=== PATIENT | male | born 1970 | race African-American/Black ===

== ENCOUNTER 2024-11-01 11:52 | Inpatient (IN) | payer SELFPAY ==
[2024-11-01 12:33] LABS: Absolute Lymphocytes (CBC) 2.5 K/uL (0.7-4.9); Hematocrit 40.3 % (39.6-49.0); Hemoglobin 12.8 g/dL (13.6-17.9); MCH 23.2 pg (27.0-35.0); MCHC 31.8 g/dL (32.0-36.0); MCV 73.1 fL (80-100); MPV 9.9 fL (7.6-11.3); Nucleated RBC Absolute Count 0.0 (0-0); Nucleated Red Blood Cells % 0.0 % (0-0); RBC Red Blood Cell Count 5.52 M/uL (4.33-5.43); White Blood Count 7.60 thou/uL (4.3-10.9)
--- NOTE | 2024-11-01 12:58 | RAD REPORT ---
EXAM: Chest Single View HISTORY: 54 years Male Weakness COMPARISON: No prior exams FINDINGS: LUNGS/PLEURA: The lungs are clear. No pleural effusions or pneumothorax. No pulmonary edema. CARDIAC/MEDIASTINUM: The cardiac silhouette is within normal limits. UPPER ABDOMEN: No significant abnormality. BONES: No acute abnormality. LINES/TUBES/OTHER: N/A IMPRESSION: No evidence of acute cardiopulmonary disease.
[2024-11-01 13:12] LABS: PT Prothrombin Time 11.6 SECONDS (10-13.0); Protime INR 1.03
[2024-11-01 13:24] LABS: ALT/SGPT 16 U/L (16-61); Albumin 3.4 g/dL (3.4-5.0); Albumin/Globulin Ratio 1.0 (1.1-1.8); Alkaline Phosphatase 161 U/L (45-117); Anion Gap 6.5 mEq/L (5.0-15.0); BUN Blood Urea Nitrogen 13 mg/dL (7-18); Globulin 3.5 g/dL (2.3-3.5); Glucose Level 160 mg/dL (74-106); Magnesium 1.7 mg/dL (1.6-2.4); Potassium 3.5 mEq/L (3.5-5.1); Troponin High Sensitivity 7.2 pg/mL (<58.9)
[2024-11-01 13:35] LABS: AST/SGOT < 10 U/L (15-37)
--- NOTE | 2024-11-01 14:16 | RAD REPORT ---
EXAMINATION: Head Brain Wo Cont CLINICAL INDICATION: Male, 54 years old.WEAKNESS TECHNIQUE: Axial CT images from the skull base to the vertex without intravenous contrast. Coronal an d sagittal reformatted images were created from the data set. One or more of the following dose reduction techniques were used: Automated exposure control, adjustment of the mA and/or kV according to patient size, and/or iterative reconstruction. Unless otherwise specified, incidental findings do not require dedicated imaging follow-up. [id number]. COMPARISON: No prior exams FINDINGS: INTRACRANIAL: No acute intracranial hemorrhage. No acute large vascular territory infarct. No hydroce phalus. No mass effect or midline shift. Moderate chronic small vessel ischemic changes. VASCULATURE: No visualized abnormalities in the arteries or dural venous sinuses. SCALP/SKULL: No calvarial fracture identified. No acute soft tissue abnormality. SINUSES: Mucous retention cyst in the left maxillary sinus. No significant mastoid fluid. IMPRESSION: No acute intracranial abnormality. Cerebral atrophy with chronic small vessel ischemic changes.
--- NOTE | 2024-11-01 14:17 | RAD REPORT ---
EXAMINATION: Neck Angio CLINICAL INDICATION: Male, 54 years old. Weakness TECHNIQUE: Axial CT images were obtained from the aortic arch to the skull base after intravenous con trast utilizing angiographic protocol with 3D post-processing (maximum intensity projection images, volume rendered images and/or shaded surface rendered images). One or more of the following dose redu ction techniques were used: Automated exposure control, adjustment of the mA and/or kV according to patient size, and/or iterative reconstruction. Unless otherwise specified, incidental findings do not require dedicated imaging follow-up. [id number]. NASCET criteria used. Mild 0-49% stenosis Moderate 50-69% stenosis Severe 70-99% stenosis COMPARISON: No prior exam. FINDINGS: AORTA: Normal RIGHT: - CCA: No flow limiting stenosis (>= 50%). No dissection. - ICA: No flow limiting stenosis (>= 50%). No dissection. - ECA: No flow limiting stenosis (>= 50%). No dissection. LEFT: - CCA: No flow limiting stenosis (>= 50%). No dissection. - ICA: No flow limiting stenosis (>= 50%). No dissection. - ECA: No flow limiting stenosis (>= 50%). No dissection. VERTEBRAL: Patent SOFT TISSUE: No significant neck soft tissue abnormalities. The visualized lung apices are clear. 3D images confirm these findings. IMPRESSION: No arterial dissection or stenosis identified within the neck.
--- NOTE | 2024-11-01 14:19 | RAD REPORT ---
EXAMINATION: Head angio CLINICAL INDICATION: Male, 54 years old. WEAKNESS TECHNIQUE: Axial CT images were obtained through the head after intravenous contrast utilizing angiog raphic protocol with 3D post-processing (maximum intensity projection images, volume rendered images and/or shaded surface rendered images). One or more of the following dose reduction technique s were used: Automated exposure control, adjustment of the mA and/or kV according to patient size, and/or iterative reconstruction. Unless otherwise specified, incidental findings do not require dedic ated imaging follow-up. COMPARISON: No prior exam. FINDINGS: RIGHT: ICA: No aneurysm, stenosis, or dissection. BRITTNI: No aneurysm, stenosis, or dissection. MCA: No aneurysm, stenosis, or dissection. CIGAR PATCHER: No aneurysm, stenosis, or dissection. LEFT: ICA: No aneurysm, stenosis, or dissection. BRITTNI: No aneurysm, stenosis, or dissection. MCA: No aneurysm, stenosis, or dissection. CIGAR PATCHER: No aneurysm, stenosis, or dissection. Vertebrobasilar: The vertebral arteries are patent. The basilar artery is normal in appearance. 3D images confirm these findings. IMPRESSION: No occlusion, aneurysm, or hemodynamically significant stenosis identified.
--- NOTE | 2024-11-01 14:40 | ER ---
Nurse's Notes [facility] Name: Blas Molina Age: 54 yrs Sex: Male : 1970 Arrival Date: 11/01/2024 Time: 11:52 Bed 13 Private MD: Diagnosis: Weakness Presentation: 11/01 12:10 Chief complaint: Patient states: right sided weakness X 2 days , noticed his right leg iw was lagging and now he feels like his right hand is weak. Coronavirus screen: At this time, the client does not indicate any symptoms associated with coronavirus-19. Ebola Screen: No symptoms or risks identified at this time. Initial Sepsis Screen: Does the patient meet any 2 criteria? No. Patient's initial sepsis screen is negative. Does the patient have a suspected source of infection? No. Patient's initial sepsis screen is negative. Risk Assessment: Do you want to hurt yourself or someone else? Patient reports no desire to harm self or others. 12:10 Method Of Arrival: Wheelchair iw 12:10 Acuity: SALVADOR 3 iw 12:13 No acute neurological deficit is noted. Pre-hospital glucose is not applicable to this iw patient. 12:14 Onset of symptoms was October 30, 2024. iw Stroke Activation: Physician: ED Attending; Name: Dr. Alvarez; Notified At: 12:11; Arrived At: 12:11 Physician: Mid-Level Provider; Name: DEB Tejada; Notified At: 12:00; Arrived At: 12:00 Physician: [not used]; Name: ; Notified At: ; Arrived At: Physician: [not used]; Name: ; Notified At: ; Arrived At: Physician: [not used]; Name: ; Notified At: ; Arrived At: Historical: - Allergies: 12:14 No Known Allergies; iw - Home Meds: 12:14 Soliqua 100/33 100 unit-33 mcg/mL subcutaneous Insulin Pen 22 units every morning iw [Active]; Humalog U-100 Insulin 100 unit/mL Sub-Q solution before meals [Active]; Eliquis 5 mg oral tablet 2 times per day [Active]; olmesartan 20 mg oral tablet daily [Active]; carvedilol 12.5 mg oral tablet 2 times per day [Active]; - PMHx: 12:12 Cerebrovascular accident; Diabetes mellitus; Hypertensive disorder; iw - Immunization history:: Adult Immunizations not up to date. - Infectious Disease History:: Denies. - Social history:: Smoking status: Patient reports the use of cigarette tobacco products, smokes one-half pack cigarettes per day. Screenin:26 [facility] ED Fall Risk Assessment (Adult) History of falling in the last 3 months, cm10 including since admission No falls in past 3 months (0 pts) Confusion or Disorientation No (0 pts) Intoxicated or Sedated No (0 pts) Impaired Gait No (0 pts) Mobility Assist Device Used No (0 pt) Altered Elimination No (0 pt) Score/Fall Risk Level 0 - 2 = Low Risk Oriented to surroundings, Maintained a safe environment, Hourly rounding (assess needs \T\ fall precautionary measures) done. Abuse screen: Denies threats or abuse. Denies injuries from another. Nutritional screening: No deficits noted. 17:21 Tuberculosis screening: No symptoms or risk factors identified. cm10 Assessment: 12:48 General: Appears in no apparent distress. comfortable, Behavior is calm, cooperative. cm10 Pain: Denies pain. Neuro: No deficits noted. Level of Consciousness is awake, alert, obeys commands, Oriented to person, place, time, situation, Appropriate for age Reports weakness. Respiratory: No deficits noted. Airway is patent Respiratory effort is even, unlabored, Respiratory pattern is regular, symmetrical. 12:49 Cardiovascular: Patient's skin is warm and dry. cm10 14:24 Reassessment: Patient appears in no apparent distress at this time. Patient and/or cm10 family updated on plan of care and expected duration. Pain level reassessed. Patient is alert, oriented x 3, equal unlabored respirations, skin warm/dry/pink. 14:51 Reassessment: Patient appears in no apparent distress at this time. No changes from cm10 previously documented assessment. Patient and/or family updated on plan of care and expected duration. Pain level reassessed. Patient is alert, oriented x 3, equal unlabored respirations, skin warm/dry/pink. Vital Signs: 12:13 BP 178 / 109; Pulse 83; Resp 16; Temp 98.1; Pulse Ox 100% on R/A; Weight 72.57 kg; iw Height 5 ft. 10 in. ; 12:45 BP 165 / 103; Pulse 79; Resp 16; Pulse Ox 100% on R/A; cm10 13:00 BP 167 / 100; Pulse 78; Resp 16; Pulse Ox 98% on R/A; cm10 13:00 BP 173 / 102; Pulse 74; Resp 14; Pulse Ox 98% on R/A; cm10 13:15 BP 167 / 98; Pulse 77; Resp 18; Pulse Ox 100% on R/A; cm10 13:30 BP 166 / 104; Pulse 71; Resp 16; Pulse Ox 100% ; cm10 13:45 BP 161 / 104; Pulse 68; Resp 16; Pulse Ox 100% on R/A; cm10 16:25 BP 169 / 105; Pulse 70; Resp 18; Pulse Ox 100% ; cm10 17:00 BP 177 / 104; Pulse 72; Resp 16; Pulse Ox 100% on R/A; cm10 12:13 Body Mass Index 22.96 (72.57 kg, 177.8 cm) iw NIH Stroke Scale Scores: 12:42 NIHSS Score: 2 dr5 ED Course: 11:53 Patient arrived in ED. eb 11:53 Terrell Mondragon FNP-C is PHCP. dr5 11:53 Adalid Alvarez MD is Attending Physician. dr5 12:02 Olga Aquino, MITESH is Primary Nurse. cm10 12:12 Triage completed. iw 12:14 Arm band placed on. iw 12:26 Patient has correct armband on for positive identification. Bed in low position. Side cm10 rails up X2. Client placed on continuous cardiac and pulse oximetry monitoring. NIBP monitoring applied. equipment scheduler on. 12:26 PT-INR Sent. cm10 12:26 Troponin High Sensitivity Sent. cm10 12:26 Phosphorus Sent. cm10 12:26 CMP Sent. cm10 12:26 CBC with Diff Sent. cm10 12:27 Initial lab(s) drawn, by me, sent to lab. Inserted saline lock: 22 gauge in right cm10 forearm, using aseptic technique. Blood collected. Flushed with 10 mL NS. 12:27 Missed attempt(s): 20 gauge in right antecubital area. Bleeding controlled, band aid cm10 applied, catheter tip intact. 12:36 Chest Single View XRAY In Process Unspecified. EDMS 12:59 Lab(s) recollected, by me, sent to lab. em1 14:12 CT Head Brain wo Cont In Process Unspecified. EDMS 14:12 CT Head Angio In Process Unspecified. EDMS 14:12 CT Neck Angio In Process Unspecified. EDMS 14:39 Stan Pina MD is Hospitalizing Provider. dr5 17:21 Provided Education on: Need for admit. cm10 17:21 No provider procedures requiring assistance completed. Patient admitted, IV remains in cm10 place. Administered Medications: 16:24 Drug: hydrALAZINE IVP 5 mg IVP once Route: IVP; Site: right forearm; cm10 17:22 Follow up: Response: No adverse reaction cm10 Medication: 12:48 VIS not applicable for this client. cm10 Outcome: 14:39 Decision to Hospitalize by Provider. dr5 17:20 Admitted to Med/surg accompanied by tech, via wheelchair, room 219, cm10 17:20 Condition: good 17:20 Instructed on the need for admit, 17:22 Patient left the ED. cm10 NIH Stroke Scale - NIH Stroke Score Date: 11/01/2024 Time: 12:42 Total Score = 2 10. Dysarthria (speech clarity - read or repeat words) - 0(Normal) 11. Extinction and Inattention (visual/tactile/auditory/spatial/personal) - 0(No abnormality) 1a. Level of Consciousness (LOC) - 0(Alert) 1b. Level of Consciousness (LOC) (Month \T\ Age) - 0(Both) 1c. LOC Commands (Open \T\ Closes Eyes/Medical Center Manager) - 0(Both) 2. Best Gaze (Lateral Gaze Paresis) - 0(Normal) 3. Visual Field Loss - 0(No visual loss) 4. Facial Palsy - 0(Normal) 5a. Left Arm: Motor (10-second hold) - 0(No drift) 5b. Right Arm: Motor (10-second hold) - 0(No drift) 6a. Left Leg: Motor (5-second hold - always test supine) - 0(No drift) 6b. Right Leg: Motor (5-second hold - always test supine) - 2(Drift, some effort against gravity) 7. Limb Ataxia (finger/nose \T\ heel/hodges - test with eyes open) - 0(Absent) 8. Sensory Loss (pinprick arms/legs/face) - 0(Normal) 9. Best Language: Aphasia (description/naming/reading) - 0(No aphasia) Initials: dr5 Signatures: Dispatcher [employer] Samantha Riley, Giancarlo Howell RN em1 Gladys Sanchez Clarissa, RN RN cm10 Terrell Mondragon, ED TEACHER-C ED TEACHER-Cdr5
--- NOTE | 2024-11-01 14:40 | EDPHYS ---
Physician Documentation [facility] Name: Blas Molina Age: 54 yrs Sex: Male : 1970 Arrival Date: 11/01/2024 Time: 11:52 Bed 13 Private MD: ED Physician Adalid Alvarez HPI: 11/01 12:08 This 54 yrs old Black Male presents to ER via Ambulatory with complaints of Weakness. dr5 12:37 This 54 yrs old Black Male presents to ER via Wheelchair with complaints of Weakness. dr5 12:37 The patient presents to the emergency department with weakness of the right lower dr5 extremity, that is mild. Onset: The symptoms/episode began/occurred 2 day(s) ago. Context: occurred at home. Patient is a 54-year-old male with history of CVA back in February 2024 with left-sided deficits and slow speech patterns, hypertension, and diabetes coming into ER for right leg weakness that started 2 days ago. Patient reports that he noticed he was having difficulty ambulating on right leg and would give out on him when trying to ambulate. Patient currently takes Eliquis 5 mg twice daily and 81 mg aspirin.. Historical: - Allergies: 12:14 No Known Allergies; iw - Home Meds: 12:14 Soliqua 100/33 100 unit-33 mcg/mL subcutaneous Insulin Pen 22 units every morning iw [Active]; Humalog U-100 Insulin 100 unit/mL Sub-Q solution before meals [Active]; Eliquis 5 mg oral tablet 2 times per day [Active]; olmesartan 20 mg oral tablet daily [Active]; carvedilol 12.5 mg oral tablet 2 times per day [Active]; - PMHx: 12:12 Cerebrovascular accident; Diabetes mellitus; Hypertensive disorder; iw - Immunization history:: Adult Immunizations not up to date. - Infectious Disease History:: Denies. - Social history:: Smoking status: Patient reports the use of cigarette tobacco products, smokes one-half pack cigarettes per day. ROS: 12:41 Constitutional: as per hpi dr5 Exam: 12:42 Constitutional: This is a well developed, well nourished patient who is awake, alert, dr5 and in no acute distress. Head/Face: Normocephalic, atraumatic. Eyes: Pupils equal round and reactive to light, extra-ocular motions intact. Lids and lashes normal. Conjunctiva and sclera are non-icteric and not injected. Cornea within normal limits. Periorbital areas with no swelling, redness, or edema. ENT: Nares patent. No nasal discharge, no septal abnormalities noted. Tympanic membranes are normal and external auditory canals are clear. Oropharynx with no redness, swelling, or masses, exudates, or evidence of obstruction, uvula midline. Mucous membranes moist. Neck: Trachea midline, no thyromegaly or masses palpated, and no cervical lymphadenopathy. Supple, full range of motion without nuchal rigidity, or vertebral point tenderness. No Meningismus. Chest/axilla: Normal chest wall appearance and motion. Nontender with no deformity. No lesions are appreciated. Cardiovascular: Regular rate and rhythm with a normal S1 and S2. Normal PMI, no JVD. No pulse deficits. Respiratory: Lungs have equal breath sounds bilaterally, clear to auscultation. No rales, rhonchi or wheezes noted. No increased work of breathing, no retractions or nasal flaring. Abdomen/GI: Soft, non-tender, non-distended Back: No spinal tenderness. No costovertebral tenderness. Full range of motion. Skin: Warm, dry with normal turgor. Normal color with no rashes, no lesions, and no evidence of cellulitis. MS/ Extremity: Pulses equal, no cyanosis. Neurovascular intact. Full, normal range of motion. Weakness noted to right lower leg. Pt is able to lift up leg without assistance and push up against resistance. Neuro: Awake and alert, GCS 15, oriented to person, place, time, and situation. Cranial nerves II-XII grossly intact. Motor strength 5/5 in all extremities. Sensory grossly intact. 15:08 Radiologist reports: Negative results for CVA on CT scan for acute occlusion dr5 Vital Signs: 12:13 BP 178 / 109; Pulse 83; Resp 16; Temp 98.1; Pulse Ox 100% on R/A; Weight 72.57 kg; iw Height 5 ft. 10 in. ; 12:45 BP 165 / 103; Pulse 79; Resp 16; Pulse Ox 100% on R/A; cm10 13:00 BP 167 / 100; Pulse 78; Resp 16; Pulse Ox 98% on R/A; cm10 13:00 BP 173 / 102; Pulse 74; Resp 14; Pulse Ox 98% on R/A; cm10 13:15 BP 167 / 98; Pulse 77; Resp 18; Pulse Ox 100% on R/A; cm10 13:30 BP 166 / 104; Pulse 71; Resp 16; Pulse Ox 100% ; cm10 13:45 BP 161 / 104; Pulse 68; Resp 16; Pulse Ox 100% on R/A; cm10 16:25 BP 169 / 105; Pulse 70; Resp 18; Pulse Ox 100% ; cm10 17:00 BP 177 / 104; Pulse 72; Resp 16; Pulse Ox 100% on R/A; cm10 12:13 Body Mass Index 22.96 (72.57 kg, 177.8 cm) iw NIH Stroke Scale Scores: 12:42 NIHSS Score: 2 dr5 MDM: 11:53 Medical Screening Exam initiated dr5 15:07 Differential diagnosis: CVA, TIA, Dementia, Parkinson disease, metabolic disorder, drug dr5 effects. Data reviewed: vital signs, nurses notes, lab test result(s), CBC, white blood cell count, hemoglobin, hematocrit, platelets, electrolytes, sodium, potassium, chloride, serum bicarbonate, BUN, creatinine, serum glucose, Mag, Phosphorus, EKG, radiologic studies, CT scan, I have discussed the patient's presentation/case with the attending Emergency Department Physician;. Consideration of Admission/Observation Patient was admitted/placed on observation. Management of patient was discussed with the following: Hospitalist: Dr. Pina / Lianet Mcdowell. I considered the following discharge prescriptions or medication management in the emergency department. Historians other than the Patient: Spouse/Significant Other: . Care significantly affected by the following chronic conditions: Diabetes, Hypertension, CVA. Care significantly affected by the following Social Determinants of Health: Poor access to healthcare and/or lack of insurance, Poor access to transportation, Problems related to employment. Counseling: I had a detailed discussion with the patient and/or guardian regarding the historical points, exam findings, and any diagnostic results supporting the discharge/admit diagnosis, the presence of at least one elevated blood pressure reading (>120/80) during this emergency department visit, lab results, radiology results, the need for further work-up and treatment in the hospital. 11/01 12: Order name: CBC with Diff; Complete Time: 12:35 dr5 11/01 12: Order name: CMP; Complete Time: 13:38 dr5 11/01 12:06 Order name: Magnesium; Complete Time: 13:38 dr5 11/01 12:06 Order name: Phosphorus; Complete Time: 13:38 dr5 11/01 12:06 Order name: Troponin High Sensitivity; Complete Time: 13:38 dr5 11/01 12:06 Order name: PT-INR; Complete Time: 13:14 dr5 11/01 15:35 Order name: Basic Metabolic Panel EDMS 11/01 15:35 Order name: Basic Metabolic Panel EDMS 11/01 15:35 Order name: Basic Metabolic Panel EDMS 11/01 15:35 Order name: Basic Metabolic Panel EDMS 11/01 15:35 Order name: Basic Metabolic Panel EDMS 11/01 15:35 Order name: Basic Metabolic Panel EDMS 11/01 15:35 Order name: Lipid Profile EDMS 11/01 15:35 Order name: Lipid Profile EDMS 11/01 15:35 Order name: Magnesium EDMS 11/01 15:35 Order name: Magnesium EDMS 11/01 15:35 Order name: Magnesium EDMS 11/01 15:35 Order name: Magnesium EDMS 11/01 15:35 Order name: Magnesium EDMS 11/01 15:35 Order name: Magnesium EDMS 11/01 15:35 Order name: Phosphorus EDMS 11/01 15:35 Order name: Phosphorus EDMS 11/01 15:35 Order name: Phosphorus EDMS 11/01 15:35 Order name: Phosphorus EDMS 11/01 15:35 Order name: Phosphorus EDMS 11/01 15:35 Order name: Phosphorus EDMS 11/01 15:35 Order name: T4,Total EDMS 11/01 15:35 Order name: T4,Total EDMS 11/01 15:36 Order name: CBC with Automated Diff EDMS 11/01 15:36 Order name: CBC with Automated Diff EDMS 11/01 15:36 Order name: CBC with Automated Diff EDMS 11/01 15:36 Order name: CBC with Automated Diff EDMS 11/01 15:36 Order name: CBC with Automated Diff EDMS 11/01 15:36 Order name: CBC with Automated Diff EDMS 11/01 15:36 Order name: Thyroid Stimulating Hormone EDMS 11/01 15:36 Order name: Thyroid Stimulating Hormone EDMS 11/01 15:36 Order name: Troponin High Sensitivity EDMS 11/01 15:36 Order name: Troponin High Sensitivity EDMS 11/01 15:36 Order name: Troponin High Sensitivity [facility] 11/01 12:06 Order name: CT Head Brain wo Cont; Complete Time: 14:16 [facility] 11/01 12:06 Order name: CT Head Angio; Complete Time: 14:29 [facility] 11/01 12:06 Order name: CT Neck Angio; Complete Time: 14:29 [facility] 11/01 12:06 Order name: Chest Single View XRAY; Complete Time: 12:59 [facility] 11/01 15:36 Order name: Echo with Doppler [facility] 11/01 15:36 Order name: Stroke Protocol [facility] 11/01 15:36 Order name: Physical Therapy Consult [facility] 11/01 15:38 Order name: Speech Therapy Consult [facility] 11/01 12:06 Order name: Cardiac monitoring; Complete Time: 12:26 [facility] 11/01 12:06 Order name: EKG - Nurse/Tech; Complete Time: 12:26 [facility] 11/01 12:06 Order name: IV Saline Lock; Complete Time: 12:26 [facility] 11/01 12:06 Order name: Labs collected and sent; Complete Time: 12:26 [facility] 11/01 12:06 Order name: O2 Per Protocol; Complete Time: 12:26 [facility] 11/01 12:06 Order name: O2 Sat Monitoring; Complete Time: 12:26 [facility] 11/01 12:49 Order name: Labs - recollect needed: recollect light green and blue top; Complete Time: eb 12:59 EC:17 Rate is 76 beats/min. Rhythm is regular. QRS Linneus is Normal. SC interval is normal at dr5 154 msec. QRS interval is normal at 84 msec. QT interval is normal at 412 msec. Clinical impression: Normal ECG and No evidence of ischemia. Administered Medications: 16:24 Drug: hydrALAZINE IVP 5 mg IVP once Route: IVP; Site: right forearm; cm10 17:22 Follow up: Response: No adverse reaction cm10 Disposition: 17:24 Co-signature as Attending Physician, Adalid Alvarez MD I reviewed the patient's care rn provided by the Advanced Practice Provider and agree with the diagnosis and treatment plan. Disposition Summary: 11/01/24 14:39 Hospitalization Ordered Notes: Hospitalization Status: Inpatient Admission dr5 Provider: Stan Pina dr5 Location: Telemetry/MedSurg (Inpatient) dr5 Condition: Stable dr5 Problem: new dr5 Symptoms: are unchanged dr5 Bed/Room Type: Standard dr5 Room Assignment: 219(11/01/24 15:45) eb Diagnosis - Weakness dr5 Forms: - Medication Reconciliation Form dr5 - SBAR form dr5 - Leadership Thank You Letter dr5 Critical care time excluding procedures: 15:08 Critical care time: Bedside Care: 20 minutes, Consultation: 10 minutes, Family dr5 Intervention: 5 minutes. Total time: 35 minutes NIH Stroke Scale - NIH Stroke Score Date: 11/01/2024 Time: 12:42 Total Score = 2 10. Dysarthria (speech clarity - read or repeat words) - 0(Normal) 11. Extinction and Inattention (visual/tactile/auditory/spatial/personal) - 0(No abnormality) 1a. Level of Consciousness (LOC) - 0(Alert) 1b. Level of Consciousness (LOC) (Month \T\ Age) - 0(Both) 1c. LOC Commands (Open \T\ Closes Eyes/Extension Edger) - 0(Both) 2. Best Gaze (Lateral Gaze Paresis) - 0(Normal) 3. Visual Field Loss - 0(No visual loss) 4. Facial Palsy - 0(Normal) 5a. Left Arm: Motor (10-second hold) - 0(No drift) 5b. Right Arm: Motor (10-second hold) - 0(No drift) 6a. Left Leg: Motor (5-second hold - always test supine) - 0(No drift) 6b. Right Leg: Motor (5-second hold - always test supine) - 2(Drift, some effort against gravity) 7. Limb Ataxia (finger/nose \T\ heel/hodges - test with eyes open) - 0(Absent) 8. Sensory Loss (pinprick arms/legs/face) - 0(Normal) 9. Best Language: Aphasia (description/naming/reading) - 0(No aphasia) Initials: dr5 Signatures: Dispatcher [employer] Samantha Riley RN RN iw Nieto, Roman, MD MD rn Botello, Elizabeth eb Martinez, Clarissa, RN RN cm10 Terrell Mondragon, POTATO PANCAKE FRIER-C POTATO PANCAKE FRIER-Cdr5 Corrections: (The following items were deleted from the chart) 12:07 12:07 Chest Single View+RAD.RAD.[email or web address] ordered. EDMS EDMS 15:45 14:39 dr5 eb 16:50 15:37 Lumbar Spine 3 Views ordered. EDMS EDMS 16:50 15:37 Thoracic Spine Ap/Lat ordered. EDMS EDMS
[2024-11-01] MEDS ORDERED: ACETAMINOPHEN 500 MG TAB PO PRN (15:21)
--- NOTE | 2024-11-01 15:45 | P.HP ---
Certification for Inpatient Patient admitted to: Inpatient With expected LOS: >2 Midnights Practitioner: I am a practitioner with admitting privileges, knowledge of patient current condition, hospital course, and medical plan of care. 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 He reports having a CVA in 2023 and was treated in [place]. On evaluation, he displayed good conversation, good thought process, right leg drift, able to position in bed independently, elevated blood pressure. Laboratory evaluation significant for H&H 12/40, serum glucose 160, troponin 7.2. CT head reports "No acute intracranial abnormality. Cerebral atrophy with chronic small vessel ischemic changes" CTA neck reports "No arterial dissection or stenosis identified within the neck" CTA head reports "No occlusion, aneurysm, or hemodynamically significant stenosis identified" Chest xray reports "IMPRESSION: No evidence of acute cardiopulmonary disease." Blas will be admitted to hospitalist service for further evaluation and treatment. Dr. Flores consulted. Allergies No Known Allergies Allergy (Unverified 11/01/24 16:40) - Past Medical/Surgical History -: CVA 2023 -: HTN -: DM-IDDM - Social History Smoking Status: Current some day smoker Alcohol use: No CD- Drugs: No Review of Systems Other: Per HPI Physical Examination - Studies Laboratory Data (last 24 hrs) 11/01/24 11/01/24 11/01/24 12:56 12:56 12:23 WBC 7.60 Hgb 12.8 L Hct 40.3 Plt Count 192 PT 11.6 INR 1.03 Sodium 140 Potassium 3.5 BUN 13 Creatinine 1.07 Glucose 160 H Phosphorus 2.8 Magnesium 1.7 Total Bilirubin 0.3 AST < 10 L ALT 16 Alkaline Phosphatase 161 H Assessment and Plan - Plan Assessment and Plan CVA r/o Hx CVA 2023 - Consulted Neurology - recommendations appreciated - NIHSS = 2 - Allow permissive hypertension for tonight - q4hr neurochecks - Ordered MRI brain on Sunday - Ordered TTE on Sunday - PT/OT/BEARING INSPECTOR evaluation requested - Ordered risk profile: Hgb A1c, lipid panel, TSH - Started aspirin, folic acid, atorvastatin - Patient reports being on Eliquis DM-IDDM - Accu-Chek with sliding scale insulin Hypertension -Continue home medications as appropriate, titrate - Allow permissive hypertension tonight, SBP 180 DVT PPx continue Eliquis Full code LOS to 3 days Discharge Plan: Home Plan to discharge in: 72 Hours - Advance Directives Does patient have a Living Will: No Does patient have a Durable POA for Healthcare: No Time Spent Managing Pts Care (In Minutes): 60
[2024-11-01] MEDS ORDERED: HYDRALAZINE HCL 20 MG/ML VIAL ONE (16:20)
[2024-11-01] MEDS: NA CHLORIDE 0.9% 1,000 ML IV SCH (17:51)
[2024-11-01 18:13] VITALS: BMI 22.9
[2024-11-01 18:16] VITALS: O2SAT 100
[2024-11-01] MEDS ORDERED: APIXABAN 5 MG TABLET PO SCH (21:00)
[2024-11-01] MEDS: ATORVASTATIN 20 MG TAB PO SCH (21:44)
[2024-11-01] MEDS: APIXABAN 5 MG TABLET PO SCH (21:45)
[2024-11-01] MEDS: INSULIN REGULAR (HUMAN) 100 UNIT/ML SQ SCH (21:45)
[2024-11-02 06:41] LABS: Absolute Lymphocytes (CBC) 2.6 K/uL (0.7-4.9); Hematocrit 37.7 % (39.6-49.0); Hemoglobin 12.0 g/dL (13.6-17.9); MCH 23.3 pg (27.0-35.0); MCHC 31.9 g/dL (32.0-36.0); MCV 72.9 fL (80-100); MPV 10.5 fL (7.6-11.3); Nucleated RBC Absolute Count 0.0 (0-0); Nucleated Red Blood Cells % 0.1 % (0-0); RBC Red Blood Cell Count 5.17 M/uL (4.33-5.43); White Blood Count 6.50 thou/uL (4.3-10.9)
[2024-11-02 06:43] LABS: Anion Gap 8.5 mEq/L (5.0-15.0); BUN Blood Urea Nitrogen 16.0 mg/dL (7-18); Glucose Level 274.0 mg/dL (74-106); HDL Cholesterol 37.0 mg/dL (40-60); LDL Cholesterol, Calculated 44.0 mg/dL (<130); LDL Cholesterol,Calc NonReport 44.0; Magnesium 1.9 mg/dL (1.6-2.4); Potassium 3.5 mEq/L (3.5-5.1); T4,Total 8.8 ug/dL (4.5-12.1); Thyroid Stimulating Hormone 1.08 uIU/mL (0.358-3.740); Troponin High Sensitivity 8.6 pg/mL (<58.9)
[2024-11-02] MEDS ORDERED: ENOXAPARIN 40 MG/0.4 ML SQ SCH (09:00)
[2024-11-02] MEDS ORDERED: HOME MED 1 EA UNK (Aspirin [Aspirin] 81 MG Tablet) PO SCH (09:00)
[2024-11-02] MEDS ORDERED: HOME MED 1 EA UNK (Olmesartan Medoxomil [Olmesartan Medoxomil] 20 MG Tablet) PO SCH (09:00)
[2024-11-02] MEDS: INSULIN GLARGINE SQ SCH (09:00)
[2024-11-02] MEDS: LIXISENATIDE SQ SCH (09:00)
[2024-11-02] MEDS: FAMOTIDINE 20 MG TAB PO SCH (09:19)
[2024-11-02] MEDS: POTASSIUM CL SA 10 MEQ TAB PO ONE (09:19)
[2024-11-02] MEDS: ASPIRIN EC 81 MG TAB PO SCH (09:19)
--- NOTE | 2024-11-02 11:49 | P.PN ---
Date of Service: 11/02/24 Subjective: No acute events overnight Reports when ambulating he feels weak in the right lower extremity Denies any other new symptoms ROS: 10 point ROS as noted above, otherwise negative Physical exam GEN: Alert, oriented, NAD HEENT: Normal conjunctiva, sclera anicteric CV: Regular rate and rhythm, no edema Pulm: Nonlabored respirations on room air ABD: Soft, nontender, nondistended MSK: No joint tenderness Integumentary: No rashes Neuro: Normal speech, normal affect Vitals reviewed Assessment: CVA r/o Hx CVA 2023 - Consulted Neurology - recommendations appreciated - NIHSS = 2 - Allow permissive hypertension for tonight - q4hr neurochecks - Ordered MRI brain on Sunday - Ordered TTE on Sunday - PT/OT/CHANGE COORDINATOR evaluation requested - Ordered risk profile: Hgb A1c, lipid panel, TSH - Started aspirin, folic acid, atorvastatin - Patient reports being on Eliquis DM-IDDM - Accu-Chek with sliding scale insulin Hypertension -Continue home medications as appropriate, titrate - Allow permissive hypertension tonight, SBP 180 DVT PPx continue Eliquis Full code LOS to 3 days Time Spent Managing Pts Care (In Minutes): 35
[2024-11-02] MEDS: INSULIN GLARGINE 100 UNIT/ML SQ SCH (12:43)
[2024-11-03 05:53] LABS: Absolute Lymphocytes (CBC) 3.2 K/uL (0.7-4.9); Hematocrit 34.9 % (39.6-49.0); Hemoglobin 11.2 g/dL (13.6-17.9); MCH 23.2 pg (27.0-35.0); MCHC 32.0 g/dL (32.0-36.0); MCV 72.3 fL (80-100); MPV 10.3 fL (7.6-11.3); Nucleated RBC Absolute Count 0.0 (0-0); Nucleated Red Blood Cells % 0.1 % (0-0); RBC Red Blood Cell Count 4.82 M/uL (4.33-5.43); White Blood Count 6.90 thou/uL (4.3-10.9)
[2024-11-03 06:07] LABS: Anion Gap 8.8 mEq/L (5.0-15.0); BUN Blood Urea Nitrogen 14.0 mg/dL (7-18); Glucose Level 241.0 mg/dL (74-106); Magnesium 1.8 mg/dL (1.6-2.4); Potassium 3.8 mEq/L (3.5-5.1)
[2024-11-03] MEDS: MAGNESIUM SULFATE 1 gm IVPB 1 GM/100 ML BAG IV ONE (09:11)
[2024-11-03] MEDS: POTASSIUM CL SA 10 MEQ TAB PO ONE (09:12)
[2024-11-03] MEDS: ASPIRIN EC 81 MG TAB PO SCH (09:12)
[2024-11-03 16:34] VITALS: BP 174/99; TEMP 98.3
--- NOTE | 2024-11-03 18:11 | RAD REPORT ---
EXAMINATION: MRI BRAIN WITHOUT CONTRAST CLINICAL INDICATION: Male, 54 years old.[facility] N RLE weakness TECHNIQUE: Multiplanar multisequence MR images of the brain were obtained without intravenous contras t. Unless otherwise specified, incidental findings do not require dedicated imaging follow-up. COMPARISON: Head CT and CT angiogram 11/01/2024 FINDINGS: INTRACRANIAL: Midline structures are unremarkable. Diffusion-weighted images show 3 foci of diffusion restriction in the right postcentral gyrus subcort ical white matter, left centrum semiovale, and right aspect of the genu of the corpus callosum. There is mild diffuse parenchymal atrophy with moderateT2/FLAIR hyperintensities in the periventricul ar and deep white matter regions, likely representing chronic microvascular ischemic changes. There is no mass effect or midline shift. No abnormal extraaxial fluid collection. VASCULATURE: Normal signal voids in the larger intracranial arteries and dural venous sinuses. SINUSES: Mild scattered inflammatory mucosal thickening. Large left maxillary sinus mucus retention c yst with marginal lobulated signal hypointensity suggestive calcifications mastoid air cells are predominantly clear. BONE: The marrow signal pattern is within normal limits. IMPRESSION: 3 foci of diffusion restriction along the right postcentral gyrus subcortical white matter, left cent rum semiovale, and right aspect of the corpus callosum genu. These are compatible with acute to subacute infarcts. THIS REPORT CONTAINS FINDINGS THAT MAY BE CRITICAL TO PATIENT CARE. The findings were verbally commun icated via telephone to Stan Pina MD on 11/03/2024 6:09 PM.
--- NOTE | 2024-11-03 19:56 | RAD REPORT ---
EXAMINATION: MRI LUMBAR SPINE WITHOUT CONTRAST CLINICAL INDICATION: Male, 54 years old. RLE weakness TECHNIQUE: Multiplanar multisequence MR images were obtained of the lumbar spine without IV gadoliniu m contrast. Unless otherwise specified, incidental findings do not require dedicated imaging follow-up. COMPARISON: No prior exam. FINDINGS: For purposes of this dictation, it is assumed that there are 5 non rib-bearing lumbar type vertebrae, and the most caudal fully segmented lumbar vertebra is labeled L5. ALIGNMENT: The lumbar spine has normal alignment. BONE: Vertebral bodies are normal in height. There is a normal marrow signal pattern. Mild degrees of facet arthropathy most pronounced at L3-4 and L4-5, with small facet effusions at L4-5. CORD: No abnormal signal in the cord. The conus medullaris terminates at a normal level. The nerve ro ots of the cauda equina appear normal. SOFT TISSUE: The included paraspinal soft tissues and retroperitoneal structures are grossly normal. No abnormal masses or enhancement. EVALUATION OF THE INDIVIDUAL LEVELS: L1-2: Unremarkable. L2-3: Unremarkable. L3-4: Asymmetric small left foraminal zone disc protrusion, abutting the exiting left L3 nerve root a nd resulting in mild left neural foraminal narrowing. Central canal is patent. L4-5: Broad-based posterior disc bulge mildly effacing the ventral CSF space. Superimposed right more than left foraminal disc extrusions, resulting in mild neural foraminal narrowing worse on the right. Central canal is patent. L5-S1: Small central disc bulge. No significant central canal or foraminal stenosis. IMPRESSION: No significant lumbar spine abnormalities. Mild degenerative changes most notably at L4-5. Findings c ontribute to mild bilateral neural foraminal narrowing at L4-5 and left neural foraminal narrowing at L3-4. No significant central canal stenosis.
--- NOTE | 2024-11-04 13:16 | ECHO ---
HEIGHT: 5 ft 10 in WEIGHT: 160 lb 0 oz DATE OF STUDY: 11/03/[address]: Lianet Mcdowell NP 2-DIMENSIONAL: YES M.MODE: YES DOPPLER: YES COLOR FLOW: YES TDS: PORTABLE: YES DEFINITY: BUBBLE STUDY: DIAGNOSIS: STROKE CARDIAC HISTORY: CATHERIZATION: NO SURGERY: NO PROSTHETIC VALVE: NO PACEMAKER: NO MEASUREMENTS (cm) DIASTOLIC (NORMALS) SYSTOLIC (NORMALS) IVSd 1.1 (0.6-1.2) LA Diam 3.4 (1.9-4.0) LVEF 60-65% LVIDd 4.4 (3.5-5.7) LVIDs 2.9 (2.0-3.5) %FS 35% LVPWd 1.2 (0.6-1.2) Ao Diam 2.6 (2.0-3.7) 2 DIMENSIONAL ASSESSMENT: RIGHT ATRIUM: NORMAL LEFT ATRIUM: NORMAL RIGHT VENTRICLE: NORMAL LEFT VENTRICLE: NORMAL TRICUSPID VALVE: TRACE TRICUSPID REGURGITATION MITRAL VALVE: NORMAL PULMONIC VALVE: NORMAL AORTIC VALVE: NORMAL PERICARDIAL EFFUSION: NONE AORTIC ROOT: NORMAL LEFT VENTRICULAR WALL MOTION: NORMAL DOPPLER/COLOR FLOW: NORMAL COMMENTS: 1. NORMAL LEFT VENTRICULAR SYSTOLIC FUNCTION, EJECTION FRACTION 60-65%, NORMAL WALL MOTION 2. NORMAL DIASTOLIC FUNCTION 3. NEGATIVE BUBBLE STUDY TECHNOLOGIST: KRISTINA MORALES
== END 2024-11-03 19:16 | disposition home or self-care (01) | DRG 57 ==
LOC: ER 11:52 → ERHOLD 16:51 → 2ND 16:58
PROVIDERS: ADMIT Hospitalist; ATTEND Hospitalist
DX: I69.354 Hemiplegia and hemiparesis following cerebral infarction affecting left non-dominant side (principal); I69.398 Other sequelae of cerebral infarction; I10 Essential (primary) hypertension; E11.9 Type 2 diabetes mellitus without complications; F17.210 Nicotine dependence, cigarettes, uncomplicated; R29.702 NIHSS score 2; R29.810 Facial weakness; Z79.01 Long term (current) use of anticoagulants; Z79.82 Long term (current) use of aspirin; Z79.02 Long term (current) use of antithrombotics/antiplatelets; Z79.4 Long term (current) use of insulin; Z59.71 Insufficient health insurance coverage; Z56.0 Unemployment, unspecified; Z59.82 Transportation insecurity; Z79.84 Long term (current) use of oral hypoglycemic drugs
CPT/HCPCS: 36415; 70450; 70496; 70498; 70551; 71045; 72148; 80048; 80053; 80061; 82947; 83735; 84100; 84436; 84443; 84484; 85025; 85610; 93005; 93306; 96374; 97112; 97116; 97161; 99285; J0360; J1815; J3475; J7030; Q9967